=== PATIENT | female | born 1985 | race Caucasian/White ===

== ENCOUNTER 2023-08-08 08:12 | Outpatient (CLI) | payer OTHER ==
[2023-08-08 09:12] LABS: #Eosinphils 0.1 10x3/uL (0.0-0.5); #Monocytes 0.4 10x3/uL (0.0-1.1); %Basophils 0.7 % (0.0-2.0); %Eosinophils 2.1 % (0.0-6.0); %Lymphocytes 42.8 % (18.0-47.0); %Monocytes 8.2 % (0.0-10.0); %Neutrophils 46.2 % (40.0-75.0); Hematocrit 40.8 % (34.9-44.5); Hemoglobin 14.5 g/dL (12.0-15.5); Mean Corpuscular HGB CONC 35.5 g/dL (32.0-36.0); Mean Corpuscular Hemoglobin 32.2 pg (27.0-33.0); Mean Corpuscular Volume 90.5 fl (81.6-98.3); Mean Platelet Volume 9.8 fl (7.4-10.4); Platelet Count 201 10x3/uL (150-450); RBC Distribution Width 12.7 % (11.5-14.5); Red Blood Cell (RBC) Count 4.51 10x6/uL (3.90-5.03); White Blood Cell (WBC) Count 4.4 10x3/uL (3.5-10.5)
== END 2023-08-08 08:13 | disposition home or self-care (01) ==
LOC: LABBT 08:12
PROVIDERS: ATTEND Surgery
DX: Z01.818 Encounter for other preprocedural examination (principal); K60.1 Chronic anal fissure; L91.8 Other hypertrophic disorders of the skin
CPT/HCPCS: 85025; 93005; 93010

== ENCOUNTER 2023-08-11 11:55 | Day surgery (SDC) | payer OTHER ==
[2023-08-08 08:34] VITALS: BMI 31.8
[2023-08-11] MEDS ORDERED: Bupivacaine 0.25% HCL 30 ML VIAL ONE (14:10)
[2023-08-11] MEDS ORDERED: fentaNYL PF 100 MCG/2 ML SYRINGE ONE (14:14)
[2023-08-11] MEDS ORDERED: Midazolam HCl 2 mg/2 ml Vial ONE (14:14)
[2023-08-11 14:21] LABS: Anion Gap 15 mmol/L (10-20); BUN (Urea Nitrogen) 10 mg/dL (7.0-18.7); Calc. Creatinine Clearance 112 mL/min (70-130); Calcium 9.7 mg/dL (7.8-10.44); Carbon Dioxide 23 mmol/L (22-29); Chloride 102 mmol/L (98-107); Estimated GFR 89; Glucose 83 mg/dL (70-105); Sodium 135 mmol/L (136-145)
[2023-08-11] MEDS ORDERED: LevoFLOXacin 500 mg/D5W 100 ML BAG ONE (14:21)
[2023-08-11] MEDS ORDERED: PROPOFOL 200 MG/20 ML VIAL ONE (14:25)
[2023-08-11] MEDS ORDERED: Dexamethasone 20 MG/5 ML VIAL ONE (14:25)
[2023-08-11] MEDS ORDERED: Lidocaine 1% PF 5 ML VIAL ONE (14:25)
[2023-08-11] MEDS ORDERED: Ondansetron PF 4 MG/2 ML Vial ONE (14:25)
[2023-08-11] MEDS ORDERED: Ketorolac Tromethamine 30 MG/ML VIAL ONE (14:25)
== END 2023-08-11 16:36 | disposition home or self-care (01) ==
LOC: SDC 11:55
PROVIDERS: ATTEND Surgery
PROC: 0D8R0ZZ Division of Anal Sphincter, Open Approach (ICD-10-PCS; principal; 2023-08-11)
DX: K60.1 Chronic anal fissure (principal); K64.4 Residual hemorrhoidal skin tags; Z88.0 Allergy status to penicillin
CPT/HCPCS: 80048; 88304; J1100; J1885; J1956; J2250; J2405; J2704; S0020